=== PATIENT | male | born 1955 | race Caucasian/White ===

== ENCOUNTER 2018-01-03 19:56 | Inpatient (IN) | payer BC ==
[~2018-01-03] VITALS: Ht 177.8 cm; Wt 90.9 kg
--- NOTE | ~2018-01-03 | CON ---
[place], [place] REPORT OF CONSULTATION NAME: CANDELARIA PATRICIO [facility] #: [id number] UNIT #: [id number] ROOM: 526 DOCTOR: ORIANA CEDENO MD BIRTHDATE: [birth year] DOS: 01/04/2018 CONSULTATION REQUESTED BY: Hospitalist service. REASON FOR CONSULTATION: For assessment of acute pulmonary embolism. HISTORY OF PRESENT ILLNESS: This is a 62-year-old white male with past history of essential hypertension and cough, noted in usual state of health. The patient started with having pain and achiness, which is described in the right lower portion of the chest. The patient stated that he started having pain at night. He took some pain medication and went golfing. As the patient started golfing, the patient noted increased pain. The patient took a couple of Motrin after the fifth hole. Later on, significant shortness breath noted gradually progressive and severe. The patient presented to the Emergency Room on 01/03/2018. The patient was assessed in the Emergency Room. The patient underwent CT of the chest that reported evidence of pulmonary embolism. The patient has been started on medical management of the pulmonary embolism with the Lovenox therapeutic dose. He has been currently receiving the Lovenox shot for the medical management of the current pulmonary embolism. His pain has been decreased. Shortness of breath was also noted decreased. Denies symptoms of hemoptysis or chest trauma. The patient denies symptoms of coughing. REVIEW OF SYSTEMS: CONSTITUTIONAL: Fatigue and tiredness reported. The patient without any fever or chills. EYES: Denies any burning, redness, or tenderness. EARS, NOSE, THROAT SYMPTOMS: Denies sore throat, hoarseness, otalgia, postnasal drainage. CARDIOVASCULAR: Denies angina pain, edema, pain of the lower extremities. GASTROINTESTINAL SYMPTOMS: Denies dysphagia, nausea, vomiting, diarrhea, abdominal pain, hematemesis, melena, or hematochezia. GENITOURINARY SYMPTOMS: No dysuria, suprapubic pain, hematuria or urinary incontinence. MUSCULOSKELETAL SYMPTOMS: No acute joint pain, redness, or tenderness. CENTRAL NERVOUS SYSTEM: The patient denies symptoms of tingling sensation of the extremities, headache, diplopia, syncopal episodes or focal neurologic deficit. Remaining systems were reviewed. They were noted all negative. PAST MEDICAL HISTORY: 1. History of essential hypertension. 2. History of gout. PAST SURGICAL HISTORY: Noted as no past major surgery. SOCIAL HISTORY: The patient is . The is present in the room with her history. Tobacco use is noted less than a pack of cigarettes per day for 40 years, which was discontinued many years ago. The tobacco use was done only when he was very young at the age of [age] years old. [place], [place] REPORT OF CONSULTATION [facility]: [facility] [id number] UNIT #: [id number] ROOM: 526 DOCTOR: ISABELLA FARNSWORTH MD,ORIANA BIRTHDATE: [birth year] FAMILY HISTORY: The patient's father with complication related to myocardial infarction at age of 5353 years old. Mother is currently 88 years old with history of deep venous thrombosis and coronary artery disease. HOME MEDICATIONS: Noted use of: 1. Coreg 12.5 mg p.o. b.i.d. 2. Allopurinol 200 mg p.o. daily. DRUG ALLERGIES: No known drug allergies. PHYSICAL EXAMINATION: GENERAL: A 62-year-old white male who has been noted quite comfortable, resting on the bed without any acute distress. The was also present in the room with the patient who assisted in the history as well. Height of 5 feet 10 inches, weight 200 pounds, BMI 28.7. VITAL SIGNS: For the patient which were recorded shows normal temperature, respiratory rate of 18-20, heart rate of 74-69, blood pressure 159/89-170/86 earlier. Pulse oxygen saturation noted on room air 95% saturation. HEENT: Head was atraumatic. Eyes nonicterus. NECK: Supple. CARDIOVASCULAR: S1, S2 audible. LUNGS: Crackles noted in both lower lungs, greater in the right lower than the left lower lung. There was no wheezing. ABDOMEN: Flat, soft, nontender. Bowel sounds present. EXTREMITIES: Without acute edema. MUSCULOSKELETAL: No acute deformities. CENTRAL NERVOUS SYSTEM: Cranial nerves 2-12 intact. VISIBLE SKIN: No lesions or rashes. LABORATORY DATA: Lactic acid yesterday noted 0.9. D-dimer 0.69. CBC yesterday was noted hemoglobin 13.5, hematocrit 38, platelet count 24,000, normal WBC count. The chest x-ray noted with a small area of atelectasis in the left lower lobe. PT/INR of the patient was noted as normal this morning. CBC this morning: WBC count normal, hemoglobin 13.7, hematocrit 40.0, platelet count of 130,000 that was normal. The CMP of the patient this morning; BUN normal, creatinine normal, glucose 129. CT of the chest that was done for the patient this morning was reviewed, noted with evidence of infiltration and atelectasis was noted in the right lower lobe area. Acute pulmonary embolism noted segmental pulmonary artery branches of both lower lungs. There were no pleural effusions or abnormal lymphadenopathy, mass, lesions or nodules visible. IMPRESSION: 1. The patient will be currently admitted to the hospital with acute pulmonary embolism involving subsegmental pulmonary artery branches, saddle. The patient has reported prolonged treatment for several hours and was greater, 3 or 4 of them was done for this patient in the month of October and possibly in early of December as well. This might have contributed developing acute pulmonary embolism. Ultrasound of the both lower extremity, which were noted negative for any deep venous thrombosis. [place], [place] REPORT OF CONSULTATION NAME: CANDELARIA PATRICIO UNIT #: [id number] ROOM: 526 DOCTOR: ISABELLA FARNSWORTH MD,[facility] BIRTHDATE: [birth year] 2. Mild thrombocytopenia related consumption, acute deep venous thrombosis is very likely cause. 3. History of essential hypertension and gout. 4. Possibly pulmonary infarction is strongly considered in the right lower lobe currently and pleural-based pulmonary infiltration as well. PLAN OF MANAGEMENT: Continue the patient on therapeutic subcutaneous Lovenox, dose. The patient will be continued on current dose of Lovenox for the next 24 hours. After completion of that, upon stability, it could be switched to the Eliquis on therapeutic dose, loading dose for 7 days followed by the 5 mg b.i.d. dosing would be appropriate. Monitor respiratory status otherwise closely. He does not require any oxygen supplementation. Thrombocytosis seemed to be resolved. Monitoring thrombocytopenia will be continued because of the current dose of Lovenox. Usual care. Hypercoagulability workup will be ordered. The patient has been ordered for usual ambulation without any exertion, could be done only in the room at this time. However, excessive exertion should be avoided. Other supportive therapy, plan of management care for the patient to be done. Additional treatment changes might be recommended based on progression of the illness. Comprehensive assessment to rule out any malignancy throughout the body should be done, but that needs to be accomplished after discharge from the hospital in the outpatient settings. The assessment and management, further workup and the potential management has been discussed in detail with the patient and the spouse in the room. All the questions were addressed. ORIANA MASON MD CM:CONSTR:REPORT OF CONSULTATION 20 01/05/18 0421 interface
--- NOTE | ~2018-01-03 | PR ---
[place], [place] PROGRESS NOTE [id number] UNIT #: [id number] ROOM: 526 DOCTOR: ISABELLA FARNSWORTH MD,ORIANA BIRTHDATE: [birth year] DOS: 01/07/2018 SUBJECTIVE: The patient noted comfortable at this time, resting without any pain in the chest, shortness of breath, coughing or hemoptysis. He has been continued on Eliquis 10 mg b.i.d. dosing. OBJECTIVE: VITAL SIGNS: Normal temperature, respiratory rate 20, heart rate 64, and blood pressure 150/88. The pulse oxygen saturation noted as 94% saturation 96 on room air. HEENT: Examination shows head was atraumatic. Eyes nonicterus. NECK: Supple. CARDIOVASCULAR: S1, S2 is audible. LUNGS: The patient noted without any wheeze or crackles. ABDOMEN: Soft, nontender. EXTREMITIES: Without acute edema. LABORATORY DATA: BMP was noted normal. CBC of the patient noted hemoglobin 12. Remaining CBC was completely normal. IMPRESSION: The patient with acute pulmonary embolism involving both lower lobes subsegmental arterial branches for this patient with a small pulmonary infarction, which was improving clinical radiologically with the chest x-ray that was assessed yesterday as well. PLAN OF MANAGEMENT: The patient could be discharged home for 6 more days of Eliquis 10 mg p.o. b.i.d. and then starting at a maintenance dose of 5 mg b.i.d. Outpatient followup suggested the patient in the next 2-3 weeks to discuss the current hypercoagulable profile for the patient, which was ordered for further continuation of anticoagulation for future. Other supportive therapy, plan of management and care plan. Usual treatment. ORIANA MASON MD CM:PNTRANS [id number] ORIANA FARNSWORTH MD 01/07/18 1605 interface
--- NOTE | ~2018-01-03 | PR ---
[place], [place] PROGRESS NOTE NAME: CANDELARIA PATRICIO [facility] #: [id number] UNIT #: [id number] ROOM: 526 DOCTOR: ISABELLA FARNSWORTH MD,ORIANA BIRTHDATE: [birth year] DOS: 01/06/2018 SUBJECTIVE: The patient noted comfortable at this time without any acute distress, sitting on the bed. He has not been noted symptoms of hemoptysis. There were no symptoms of shortness of breath. Mild cough was noted with small amounts of sputum expectorated in the last 24 hours actually in this morning. He has been continued with Lovenox in therapeutic shots for this patient with acute pulmonary embolism management. He has not been noted symptoms of fever or chills. Denies symptoms of nausea or vomiting. Remaining systems were reviewed, they were noted all negative. PHYSICAL EXAMINATION: VITAL SIGNS: For the patient which are recorded showed the temperature noted as normal. Respiratory rate of 20. Heart rate of 93, blood pressure 132/82. Pulse oxygen saturation on room air was noted as 90%. HEENT: Examination shows head was atraumatic. Eyes nonicterus. NECK: Supple. CARDIOVASCULAR: S1, S2 audible. LUNGS: Noted without any wheeze or crackles today. ABDOMEN: Soft, flat, nontender, bowel sounds present. EXTREMITIES: Without any acute edema. CENTRAL NERVOUS SYSTEM: Cranial nerves 2-12 intact. No focal deficit. MUSCULOSKELETAL: No acute deformities. SKIN: Visible skin with no lesions or rashes. LABORATORY DATA: CBC today: WBC count 6.7, hemoglobin and hematocrit normal, platelet count was noted ____ mildly decreased. The BUN and creatinine remains normal. IMPRESSION: The patient has been noted acute pulmonary embolus bilaterally with pulmonary infarction, also suspected in the right lower lobe. The patient with musculoskeletal chest pain could be occurring in the left side. There was no evidence of deep venous thrombosis. PLAN OF TREATMENT: Obtain a chest x-ray for the patient today. Discontinue Lovenox after the current dose, which was given today at about 5 o' clock and start the patient loading dose with Eliquis. The Eliquis will be given 10 mg b.i.d. for 7 days followed by 5 mg b.i.d. dosing. Possible discharge home in the morning. If the chest x-ray does show any evidence of pneumonia, he will be started on the antibiotics, otherwise it will not be needed. FOLLOWUP: Medical management. Usual care. Additional treatment changes to be made for the patient based on progression of the illness. [place], [place] PROGRESS NOTE NAME: CANDELARIA PATRICIO [facility] #: [id number] UNIT #: [id number] ROOM: [facility] DOCTOR: ORIANA CEDENO MD BIRTHDATE: [birth year] ORIANA MASON MD CM:PNTRANS [id number] ORIANA FARNSWORTH MD 01/07/18 0022 interface
--- NOTE | ~2018-01-03 | EKG ---
[place], [place] ELECTROCARDIOGRAM REPORT NAME: CANDELARIA PATRICIO UNIT #: [id number] ROOM: 526 DOCTOR: ISABELLA FARNSWORTH MD,ORIANA BIRTHDATE: [birth year] DOS: 01/04/2018 ELECTROCARDIOGRAM REPORT TIME: At 8:50 p.m. Normal sinus rhythm noted with heart rate 73 beats per minute. Nonspecific ST-T changes noted with poor R-wave progression in the chest leads. Rule out acute ischemia. Possibility of old inferior myocardial infarction was also suggested. ORIANA MASON MD CM:EKGRPT:ELECTROCARDIOGRAM REPORT [id number] ORIANA FARNSWORTH MD
[2018-01-03 19:59] VITALS: BP 139/70
[2018-01-03] MEDS ORDERED: CARVEDILOL12.5 MG PO (20:03)
[2018-01-03] MEDS ORDERED: ALLOPURINOL300 MG PO (20:03)
[2018-01-03 23:02] LABS: BASO % 0.2 % (0.0-1.0); EOS # 0.1 10*3/uL (0.0-0.4); EOS % 1.4 % (1.0-4.0); HEMATOCRIT 38.8 % (42.0-52.0); HEMOGLOBIN 13.5 g/dl (14.0-18.0); LYMPH # 0.7 10*3/uL (1.3-4.4); LYMPH % 8.1 % (27.0-41.0); MEAN CELL VOLUME 92.6 fl (80.0-94.0); MEAN CORPUSCULAR HGB 32.2 pg (27.0-31.0); MEAN CORPUSCULAR HGB CONC 34.8 g/dl (33.0-37.0); MEAN PLATELET VOLUME 10.6 fl (9.6-12.3); MONO # 0.7 10*3/uL (0.1-1.0); MONO % 7.9 % (3.0-9.0); NEUT # 7.5 10*3/uL (2.3-7.9); NEUT % 82.2 % (47.0-73.0); PLATELET COUNT AUTOMATED 124 10*3/uL (130-400); RED BLOOD COUNT 4.19 10*6/uL (4.50-5.90); RED CELL DISTRI WIDTH 13.2 % (0-14.5); WHITE BLOOD COUNT 9.2 10*3/uL (4.8-10.8)
[2018-01-03 23:12] LABS: BILIRUBIN NEGATIVE (NEGATIVE); BLOOD TRACE-LYSED (NEGATIVE); CLARITY CLEAR (CLEAR); COLOR YELLOW (YELLOW); GLUCOSE NEGATIVE (NEGATIVE); KETONE NEGATIVE (NEGATIVE); LEUKO ESTERASE NEGATIVE (NEGATIVE); NITRITE NEGATIVE (NEGATIVE); PH 5.5 (5.0-9.0); SPECIFIC GRAVITY 1.025 (1.005-1.030); UROBILINOGEN 0.2 E.U./dl (0.2-1.0)
[2018-01-03 23:19] LABS: ALBUMIN 3.7 gm/dl (3.1-4.5); ALKALINE PHOSPHATASE 76 U/L (45-117); BUN 25 mg/dl (7-24); CHLORIDE 108 mmol/L (98-107); CREATININE 1.24 mg/dL (0.70-1.30); POTASSIUM 4.1 mmol/L (3.5-5.1); SGOT/AST 14 IU/L (3-35); SGPT/ALT 19 U/L (12-78); SODIUM 140 mmol/L (136-145); TOTAL PROTEIN 7.4 gm/dL (6.4-8.2); TROPONIN I < 0.015 ng/ml (<0.045)
[2018-01-03 23:31] LABS: EPITHELIAL CELLS 0-5
[2018-01-03 23:32] LABS: BACTERIA TRACE; RBC 0-2 rbc/hpf (0-2); WBC 0-2 wbc/hpf (0-5)
[2018-01-04] VITALS (7 sets, daily range): BP systolic 122–170; BP diastolic 65–89
[2018-01-04 06:26] LABS: BASO % 0.2 % (0.0-1.0); EOS % 0.1 % (1.0-4.0); HEMOGLOBIN 13.7 g/dl (14.0-18.0); LYMPH # 0.6 10*3/uL (1.3-4.4); LYMPH % 5.7 % (27.0-41.0); MEAN CELL VOLUME 92.2 fl (80.0-94.0); MEAN CORPUSCULAR HGB 31.6 pg (27.0-31.0); MEAN CORPUSCULAR HGB CONC 34.3 g/dl (33.0-37.0); MEAN PLATELET VOLUME 10.5 fl (9.6-12.3); MONO # 0.8 10*3/uL (0.1-1.0); MONO % 7.1 % (3.0-9.0); NEUT # 9.1 10*3/uL (2.3-7.9); NEUT % 86.4 % (47.0-73.0); PLATELET COUNT AUTOMATED 130 10*3/uL (130-400); RED BLOOD COUNT 4.34 10*6/uL (4.50-5.90); RED CELL DISTRI WIDTH 13.3 % (0-14.5); WHITE BLOOD COUNT 10.6 10*3/uL (4.8-10.8)
[2018-01-04 07:02] LABS: ALBUMIN 3.7 gm/dl (3.1-4.5); ALKALINE PHOSPHATASE 76 U/L (45-117); BUN 21 mg/dl (7-24); CHLORIDE 108 mmol/L (98-107); CHOLESTEROL 173 mg/dL (<200); CREATININE 1.13 mg/dL (0.70-1.30); HDL CHOLESTEROL 49 mg/dl (40-60); LDL CHOLESTEROL 110 mg/dL (9-159); POTASSIUM 4.1 mmol/L (3.5-5.1); SGOT/AST 14 IU/L (3-35); SGPT/ALT 19 U/L (12-78); SODIUM 140 mmol/L (136-145); TOTAL PROTEIN 7.7 gm/dL (6.4-8.2); TRIGLYCERIDES 69 mg/dl (<150); VLDL CHOLESTEROL 14 mg/dL (6-40)
[2018-01-04 07:52] LABS: VITAMIN D, 25-HYDROXY 23.6 ng/mL (30-100)
[2018-01-05 00:18] VITALS: BP 122/64
[2018-01-05 07:19] LABS: BASO % 0.2 % (0.0-1.0); EOS # 0.3 10*3/uL (0.0-0.4); HEMATOCRIT 35.9 % (42.0-52.0); HEMOGLOBIN 12.1 g/dl (14.0-18.0); LYMPH # 0.7 10*3/uL (1.3-4.4); LYMPH % 7.3 % (27.0-41.0); MEAN CELL VOLUME 92.5 fl (80.0-94.0); MEAN CORPUSCULAR HGB 31.2 pg (27.0-31.0); MEAN CORPUSCULAR HGB CONC 33.7 g/dl (33.0-37.0); MONO # 0.8 10*3/uL (0.1-1.0); MONO % 8.1 % (3.0-9.0); NEUT # 7.8 10*3/uL (2.3-7.9); NEUT % 80.9 % (47.0-73.0); PLATELET COUNT AUTOMATED 116 10*3/uL (130-400); RED BLOOD COUNT 3.88 10*6/uL (4.50-5.90); RED CELL DISTRI WIDTH 13.3 % (0-14.5); WHITE BLOOD COUNT 9.6 10*3/uL (4.8-10.8)
[2018-01-05 07:43] LABS: ALBUMIN 2.9 gm/dl (3.1-4.5); ALKALINE PHOSPHATASE 66 U/L (45-117); BUN 22 mg/dl (7-24); CHLORIDE 105 mmol/L (98-107); CREATININE 1.16 mg/dL (0.70-1.30); POTASSIUM 3.8 mmol/L (3.5-5.1); SGOT/AST 12 IU/L (3-35); SGPT/ALT 14 U/L (12-78); SODIUM 140 mmol/L (136-145); TOTAL PROTEIN 6.8 gm/dL (6.4-8.2)
[2018-01-05 08:00] VITALS: BP 126/89
[2018-01-05 12:00] VITALS: BP 135/83
[2018-01-05 16:00] VITALS: BP 139/85
[2018-01-05 20:00] VITALS: BP 146/75
[2018-01-06] VITALS: BP 140/82
[2018-01-06 06:34] LABS: BUN 18 mg/dl (7-24); CHLORIDE 105 mmol/L (98-107); CREATININE 1.21 mg/dL (0.70-1.30); SODIUM 138 mmol/L (136-145)
[2018-01-06 06:40] LABS: BASO % 0.3 % (0.0-1.0); EOS # 0.3 10*3/uL (0.0-0.4); EOS % 4.9 % (1.0-4.0); HEMATOCRIT 38.8 % (42.0-52.0); LYMPH % 14.6 % (27.0-41.0); MEAN CELL VOLUME 93.3 fl (80.0-94.0); MEAN CORPUSCULAR HGB 31.3 pg (27.0-31.0); MEAN CORPUSCULAR HGB CONC 33.5 g/dl (33.0-37.0); MEAN PLATELET VOLUME 11.3 fl (9.6-12.3); MONO # 0.6 10*3/uL (0.1-1.0); MONO % 9.2 % (3.0-9.0); NEUT # 4.8 10*3/uL (2.3-7.9); NEUT % 70.9 % (47.0-73.0); PLATELET COUNT AUTOMATED 127 10*3/uL (130-400); RED BLOOD COUNT 4.16 10*6/uL (4.50-5.90); RED CELL DISTRI WIDTH 13.3 % (0-14.5); WHITE BLOOD COUNT 6.7 10*3/uL (4.8-10.8)
[2018-01-06 08:00] VITALS: BP 138/82
[2018-01-06 12:00] VITALS: BP 158/74
[2018-01-06 16:00] VITALS: BP 162/73
[2018-01-06 20:00] VITALS: BP 153/81
[2018-01-07] VITALS: BP 161/77
[2018-01-07 07:13] LABS: BASO % 0.4 % (0.0-1.0); EOS # 0.2 10*3/uL (0.0-0.4); EOS % 4.5 % (1.0-4.0); HEMATOCRIT 34.9 % (42.0-52.0); HEMOGLOBIN 12.1 g/dl (14.0-18.0); LYMPH # 0.9 10*3/uL (1.3-4.4); LYMPH % 16.1 % (27.0-41.0); MEAN CELL VOLUME 92.3 fl (80.0-94.0); MEAN CORPUSCULAR HGB CONC 34.7 g/dl (33.0-37.0); MEAN PLATELET VOLUME 11.3 fl (9.6-12.3); MONO # 0.5 10*3/uL (0.1-1.0); NEUT # 3.6 10*3/uL (2.3-7.9); NEUT % 68.8 % (47.0-73.0); PLATELET COUNT AUTOMATED 135 10*3/uL (130-400); RED BLOOD COUNT 3.78 10*6/uL (4.50-5.90); RED CELL DISTRI WIDTH 13.2 % (0-14.5); WHITE BLOOD COUNT 5.3 10*3/uL (4.8-10.8)
[2018-01-07 07:40] LABS: CHLORIDE 102 mmol/L (98-107); POTASSIUM 3.6 mmol/L (3.5-5.1); SODIUM 139 mmol/L (136-145)
[2018-01-07 07:44] LABS: BUN 18 mg/dl (7-24); CREATININE 1.13 mg/dL (0.70-1.30)
[2018-01-07 08:00] VITALS: BP 158/88
[2018-01-07] MEDS ORDERED: VITAMIN D-32000 UNIT PO (12:05)
[2018-01-07] MEDS ORDERED: ELIQUIS5 M1 PO (12:05)
[2018-01-07 15:07] LABS: ANTICARDIOLIPIN AB, IGG, QN <9 GPL U/mL (0-14); ANTICARDIOLIPIN AB, IGM, QN <9 MPL U/mL (0-12); CARDIOLIPIN AB IGA 161836 <9 APL U/mL (0-11)
[2018-01-08 03:09] LABS: ANTI-THROMBIN III ACTIVITY 115 % (75-135); LUPUS DRVVT 81.8 sec (0.0-47.0); PROTEIN S, FREE 100 % (57-157); PROTEIN S, TOTAL 82 % (60-150); PTT-LA 82.3 sec (0.0-51.9); PTT-LA MIX 69.8 sec (0.0-48.9)
[2018-01-08 07:05] LABS: HEXAGONAL PHASE PHOSPHOLIPID 19 sec (0-11); LUPUS REFLEX INTERPRETATION Comment: (.)
== END 2018-01-07 12:30 | disposition home or self-care (01) | DRG 176 ==
LOC: ED 19:56 → 5E 01-04 02:34 → EDHOLD 01-04 02:34 → 5E 01-04 02:43
PROVIDERS: Emergency Medicine; Family Medicine; Internal Medicine; Internal Medicine Critical Care Medicine; Internal Medicine Hospice and Palliative Medicine
DX: I26.99 Other pulmonary embolism without acute cor pulmonale (principal); D69.6 Thrombocytopenia, unspecified; E87.8 Other disorders of electrolyte and fluid balance, not elsewhere classified; D64.9 Anemia, unspecified; R73.9 Hyperglycemia, unspecified; D72.810 Lymphocytopenia; M1A.9XX0 Chronic gout, unspecified, without tophus (tophi); I10 Essential (primary) hypertension

== ENCOUNTER → 2019-03-10 | Outpatient (CLI) | payer OTHER ==
[~2019-03-10] MED LIST: ALLOPURINOL300 MG PO; CARVEDILOL12.5 MG PO; ELIQUIS5 M1 PO; VITAMIN D-32000 UNIT PO
[2019-03-10 09:01] LABS: BUN 18 mg/dl (7-24)
== END | disposition home or self-care (01) ==
LOC: LAB 08:33 → CT 09:00
PROVIDERS: Family Medicine
DX: I25.10 Atherosclerotic heart disease of native coronary artery without angina pectoris (principal); I10 Essential (primary) hypertension; Z86.711 Personal history of pulmonary embolism

== ENCOUNTER → 2020-01-28 | Outpatient (CLI) | payer OTHER ==
[2020-01-28 11:26] LABS: BASO % 0.6 % (0.0-1.0); EOS # 0.2 10*3/uL (0.0-0.4); EOS % 3.5 % (1.0-4.0); HEMATOCRIT 42.5 % (42.0-52.0); LYMPH % 20.6 % (27.0-41.0); MEAN CELL VOLUME 90.6 fl (80.0-94.0); MEAN CORPUSCULAR HGB 31.3 pg (27.0-31.0); MEAN CORPUSCULAR HGB CONC 34.6 g/dl (33.0-37.0); MONO # 0.4 10*3/uL (0.1-1.0); MONO % 7.3 % (3.0-9.0); NEUT # 3.3 10*3/uL (2.3-7.9); NEUT % 67.6 % (47.0-73.0); PLATELET COUNT AUTOMATED 151 10*3/uL (130-400); RED BLOOD COUNT 4.69 10*6/uL (4.50-5.90); RED CELL DISTRI WIDTH 12.6 % (0-14.5); RETICULOCYTE % 1.64 % (0.50-2.50); WHITE BLOOD COUNT 4.9 10*3/uL (4.8-10.8)
[2020-01-28 11:36] LABS: BILIRUBIN NEGATIVE (NEGATIVE); BLOOD NEGATIVE (NEGATIVE); CLARITY CLEAR (CLEAR); COLOR YELLOW (YELLOW); GLUCOSE NEGATIVE (NEGATIVE); KETONE NEGATIVE (NEGATIVE); LEUKO ESTERASE NEGATIVE (NEGATIVE); NITRITE NEGATIVE (NEGATIVE); SPECIFIC GRAVITY 1.005 (1.005-1.030); UROBILINOGEN 0.2 E.U./dl (0.2-1.0)
[2020-01-28 11:42] LABS: ALBUMIN 3.7 gm/dl (3.1-4.5); ALKALINE PHOSPHATASE 86 U/L (45-117); BUN 15 mg/dl (7-24); CHLORIDE 111 mmol/L (98-107); CHOLESTEROL 196 mg/dL (<200); CREATININE 1.41 mg/dL (0.70-1.30); GAMMA GLUTAMYL TRANSPEPTIDASE 12 U/L (15-85); HDL CHOLESTEROL 35 mg/dl (40-60); IRON 81 ug/dL (65-175); LDL CHOLESTEROL 126 mg/dL (9-159); POTASSIUM 4.5 mmol/L (3.5-5.1); SGOT/AST 14 IU/L (3-35); SGPT/ALT 19 U/L (12-78); SODIUM 142 mmol/L (136-145); TOTAL IRON BINDING CAPACITY 280 ug/dl (250-450); TRIGLYCERIDES 173 mg/dl (<150); VLDL CHOLESTEROL 35 mg/dL (6-40)
[2020-01-28 11:52] LABS: FERRITIN 365.1 ng/mL (22.0-322.0); VITAMIN D, 25-HYDROXY 29.4 ng/mL (30-100)
[2020-01-28 12:01] LABS: BACTERIA TRACE
== END | disposition home or self-care (01) ==
LOC: LAB 10:42
PROVIDERS: Family Medicine
DX: E78.5 Hyperlipidemia, unspecified (principal); E55.9 Vitamin D deficiency, unspecified; R79.89 Other specified abnormal findings of blood chemistry; R53.83 Other fatigue

== ENCOUNTER → 2022-01-09 | Outpatient (CLI) | payer OTHER ==
[2022-01-09 09:06] LABS: BASO % 0.4 % (0.0-1.0); EOS # 0.2 10*3/uL (0.0-0.4); EOS % 4.1 % (1.0-4.0); HEMATOCRIT 40.8 % (42.0-52.0); LYMPH # 0.8 10*3/uL (1.3-4.4); LYMPH % 17.9 % (27.0-41.0); MEAN CELL VOLUME 92.7 fl (80.0-94.0); MEAN CORPUSCULAR HGB 31.8 pg (27.0-31.0); MEAN CORPUSCULAR HGB CONC 34.3 g/dl (33.0-37.0); MEAN PLATELET VOLUME 10.5 fl (9.6-12.3); MONO # 0.4 10*3/uL (0.1-1.0); MONO % 8.1 % (3.0-9.0); NEUT # 3.2 10*3/uL (2.3-7.9); NEUT % 69.3 % (47.0-73.0); PLATELET COUNT AUTOMATED 142 10*3/uL (130-400); RED CELL DISTRI WIDTH 13.3 % (0-14.5); WHITE BLOOD COUNT 4.7 10*3/uL (4.8-10.8)
[2022-01-09 09:07] LABS: BILIRUBIN Negative (Negative); BLOOD Negative (Negative); CLARITY Clear (Clear); COLOR Yellow (Yellow); GLUCOSE Negative (Negative); KETONE Negative (Negative); LEUKO ESTERASE Trace (Negative); NITRITE Negative (Negative); UROBILINOGEN 0.2 E.U./dl (0.0-1.0)
[2022-01-09 09:53] LABS: ALKALINE PHOSPHATASE 89 U/L (45-117); BUN 15 mg/dl (7-24); CHLORIDE 108 mmol/L (98-107); CHOLESTEROL 186 mg/dL (<200); CREATININE 1.38 mg/dL (0.70-1.30); GAMMA GLUTAMYL TRANSPEPTIDASE 18 U/L (15-85); IRON 86 ug/dL (65-175); LDL CHOLESTEROL 125 mg/dL (9-159); POTASSIUM 4.7 mmol/L (3.5-5.1); SGOT/AST 17 IU/L (3-35); SGPT/ALT 16 U/L (12-78); SODIUM 141 mmol/L (136-145); TOTAL IRON BINDING CAPACITY 258 ug/dl (250-450); TRIGLYCERIDES 129 mg/dl (<150); URIC ACID 5.6 mg/dL (3.5-7.2)
[2022-01-09 10:59] LABS: EPITHELIAL CELLS 0-2
== END | disposition home or self-care (01) ==
LOC: LAB 08:39
PROVIDERS: ATTEND Family Medicine
DX: E78.5 Hyperlipidemia, unspecified (principal); E55.9 Vitamin D deficiency, unspecified; R79.89 Other specified abnormal findings of blood chemistry; R53.83 Other fatigue; R74.8 Abnormal levels of other serum enzymes

== ENCOUNTER → 2023-01-16 | Outpatient (CLI) | payer MEDICARE | END | disposition home or self-care (01) | LOC: CARD 07:22 | PROVIDERS: ATTEND Internal Medicine | DX: I10 Essential (primary) hypertension (principal); R06.02 Shortness of breath ==

== ENCOUNTER → 2023-01-24 | Outpatient (CLI) | payer MEDICARE | END | disposition home or self-care (01) | LOC: US 08:29 | PROVIDERS: ATTEND Internal Medicine | DX: N40.0 Benign prostatic hyperplasia without lower urinary tract symptoms (principal); I10 Essential (primary) hypertension; K82.9 Disease of gallbladder, unspecified; I65.23 Occlusion and stenosis of bilateral carotid arteries ==

== ENCOUNTER 2023-01-30 07:48 | Emergency (ER) | payer MEDICARE ==
[~2023-01-30] VITALS: Wt 88.5 kg
== END 2023-01-30 08:26 | disposition home or self-care (01) ==
LOC: ED 07:48
DX: M54.2 Cervicalgia (principal); R51.9 Headache, unspecified; R22.0 Localized swelling, mass and lump, head; Z79.899 Other long term (current) drug therapy

== ENCOUNTER → 2023-07-10 | Outpatient (CLI) | payer MEDICARE ==
[2023-07-10 13:12] LABS: BASO % 0.9 % (0.0-1.0); EOS # 0.2 10*3/uL (0.0-0.4); EOS % 3.4 % (1.0-4.0); HEMATOCRIT 41.4 % (42.0-52.0); LYMPH % 20.7 % (27.0-41.0); MEAN CELL VOLUME 91.4 fl (80.0-94.0); MEAN CORPUSCULAR HGB 32.2 pg (27.0-31.0); MEAN CORPUSCULAR HGB CONC 35.3 g/dl (33.0-37.0); MEAN PLATELET VOLUME 10.4 fl (9.6-12.3); MONO # 0.5 10*3/uL (0.1-1.0); MONO % 9.6 % (3.0-9.0); NEUT # 3.1 10*3/uL (2.3-7.9); NEUT % 65.2 % (47.0-73.0); PLATELET COUNT AUTOMATED 132 10*3/uL (130-400); RED BLOOD COUNT 4.53 10*6/uL (4.50-5.90); RED CELL DISTRI WIDTH 12.5 % (0-14.5); WHITE BLOOD COUNT 4.7 10*3/uL (4.8-10.8)
[2023-07-10 13:33] LABS: ALKALINE PHOSPHATASE 72 U/L (46-116); BUN 11 mg/dl (9-23); CHLORIDE 108 mmol/L (98-107); POTASSIUM 4.6 mmol/L (3.4-5.1); SGPT/ALT 13 U/L (5-49); TOTAL PROTEIN 6.7 gm/dL (6.0-8.0)
== END ==
LOC: LAB 12:57 → US 13:30
PROVIDERS: ATTEND Urology
DX: N20.0 Calculus of kidney (principal); N28.89 Other specified disorders of kidney and ureter; R79.89 Other specified abnormal findings of blood chemistry; N40.0 Benign prostatic hyperplasia without lower urinary tract symptoms

== ENCOUNTER → 2023-08-09 | Outpatient (CLI) | payer MEDICARE | END | disposition home or self-care (01) | LOC: CT 13:00 | PROVIDERS: ATTEND Urology | DX: N20.0 Calculus of kidney (principal); K57.30 Diverticulosis of large intestine without perforation or abscess without bleeding; N40.0 Benign prostatic hyperplasia without lower urinary tract symptoms; M47.816 Spondylosis without myelopathy or radiculopathy, lumbar region; R91.1 Solitary pulmonary nodule; J98.11 Atelectasis; I70.0 Atherosclerosis of aorta ==

== ENCOUNTER → 2024-06-10 | Outpatient (CLI) | payer MEDICARE, OTHER | END | disposition home or self-care (01) | LOC: CT 15:45 | PROVIDERS: ATTEND Urology | DX: N20.0 Calculus of kidney (principal) ==

== ENCOUNTER → 2024-07-24 | Outpatient (CLI) | payer MEDICARE, OTHER ==
[~2024-07-24] MED LIST changes: +FLOMAX0.4 MG PO; +Technetium Tc 99M Tetrofosmi 0.23 MG KIT IJ SCH
== END | disposition home or self-care (01) ==
LOC: CARD 02:19
PROVIDERS: ATTEND Internal Medicine
DX: R94.39 Abnormal result of other cardiovascular function study (principal); R06.02 Shortness of breath; I10 Essential (primary) hypertension

== ENCOUNTER → 2024-07-28 | Outpatient (CLI) | payer MEDICARE, OTHER ==
[~2024-07-28] MED LIST changes: -Technetium Tc 99M Tetrofosmi 0.23 MG KIT IJ SCH
[2024-07-28 10:33] LABS: BASO % 0.6 % (0.0-1.0); EOS # 0.2 10*3/uL (0.0-0.4); EOS % 3.3 % (1.0-4.0); MEAN CELL VOLUME 92.7 fl (80.0-94.0); MEAN CORPUSCULAR HGB 31.3 pg (27.0-31.0); MEAN CORPUSCULAR HGB CONC 33.7 g/dl (33.0-37.0); MONO # 0.4 10*3/uL (0.1-1.0); MONO % 7.2 % (3.0-9.0); NEUT # 3.6 10*3/uL (2.3-7.9); NEUT % 70.2 % (47.0-73.0); PLATELET COUNT AUTOMATED 131 10*3/uL (130-400); RED BLOOD COUNT 4.64 10*6/uL (4.50-5.90); RED CELL DISTRI WIDTH 12.5 % (0-14.5); WHITE BLOOD COUNT 5.1 10*3/uL (4.8-10.8)
[2024-07-28 10:47] LABS: ACT PARTIAL THROMBO TIME 27.4 SECONDS (20.0-32.1)
[2024-07-28 11:28] LABS: POTASSIUM 4.5 mmol/L (3.4-5.1); TOTAL PROTEIN 7.1 gm/dL (6.0-8.0)
== END | disposition home or self-care (01) ==
LOC: LAB 10:16
PROVIDERS: ATTEND Internal Medicine
DX: R94.39 Abnormal result of other cardiovascular function study (principal); R06.02 Shortness of breath; Z79.899 Other long term (current) drug therapy

== ENCOUNTER → 2025-08-09 | Outpatient (CLI) | payer MEDICARE, OTHER ==
[2025-08-09 12:09] LABS: BUN 18.0 mg/dl (9-23)
== END | disposition home or self-care (01) ==
LOC: LAB 10:56
PROVIDERS: ATTEND Internal Medicine
DX: I10 Essential (primary) hypertension (principal)